=== PATIENT | female | born 1960 | race Caucasian/White ===

== ENCOUNTER 2018-04-28 19:05 | Emergency (ER) | payer OTHER ==
[2018-04-28 19:19] VITALS: BP 187/116; PULSE 102; RESP 18; TEMP 98; O2SAT 99
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
[2018-04-28] MEDS ORDERED: ROBA750T PO (22:41)
[2018-04-28] MEDS ORDERED: MOBI15TA PO (22:41)
== END 2018-04-28 23:04 | disposition home or self-care (01) ==
LOC: NEPD 19:05
DX: S16.1XXA Strain of muscle, fascia and tendon at neck level, initial encounter (principal); S39.012A Strain of muscle, fascia and tendon of lower back, initial encounter; S29.019A Strain of muscle and tendon of unspecified wall of thorax, initial encounter; R20.0 Anesthesia of skin; M50.30 Other cervical disc degeneration, unspecified cervical region; M51.34 Other intervertebral disc degeneration, thoracic region; M41.9 Scoliosis, unspecified; V49.50XA Passenger injured in collision with unspecified motor vehicles in traffic accident, initial encounter
CPT/HCPCS: 72040; 72072; 72100; 72141; 72148

== ENCOUNTER 2018-11-21 07:55 | Inpatient (IN) ==
--- NOTE | 2018-11-21 08:53 | ED ---
HPI General Chief Complaint: Psychiatric Symptoms Stated Complaint: psych eval Time Seen by Provider: 11/21/18 08:33 History of Present Illness HPI Narrative: The patient was seen and examined in the presence of the nurse. This patient complains of feeling anxiety and depression. She has been battling this for 6 months. Her doctor started her on Zoloft 5 days ago. She does not feel any better. She is not feeling suicidal. She presents for psychiatric evaluation. She denies hallucination. She denies medical complaint. Denies alcohol or drug issues. Severity is moderate. No alleviating factors. No exacerbating factors. Related Data Home Medications Medication Instructions Recorded Confirmed sertraline [Zoloft] 50 mg PO DAILY 11/21/18 11/21/18 Allergies Allergy/AdvReac Type Severity Reaction Status Date / Time No Known Allergies Allergy Verified 11/21/18 09:27 Review of Systems ROS: all other systems reviewed are negative [facility] Medical History Medical History Anxiety (Acute) Depression (Acute) FH: cholecystectomy (Acute) Vaginal hemorrhage (Acute) Social History Social History Substance History: No History of Abuse Second Hand Smoke Exposure: No Smoking Status: Former smoker How Often Do You Have a Drink Containing Alcohol: Never Recent Travel in [facility] within the Last 8 Weeks: No Recent Out of Country Travel within the Last 8 Weeks: No Immunization History Tetanus Immunization: Unsure Exam Narrative Exam Narrative: GENERAL: Well-nourished, well-developed patient in no apparent distress. SKIN: Focused skin assessment reveals no rash and nodules. Skin is Warm and dry. HEAD: Atraumatic. Normocephalic. EYES: Pupils equal and round. No scleral icterus. No injection or drainage. ENT: No nasal bleeding or discharge. Mucous membranes pink and moist. NECK: Trachea midline. No JVD. CARDIOVASCULAR: Regular rate and rhythm. No murmur appreciated. RESPIRATORY: No accessory muscle use. Clear to auscultation. Breath sounds equal bilaterally. GASTROINTESTINAL: Abdomen soft, non-tender, nondistended. Hepatic and splenic margins not palpable. MUSCULOSKELETAL: No obvious deformities. No clubbing. No cyanosis. No edema. NEUROLOGICAL: Awake and alert. No obvious cranial nerve deficits. Motor grossly within normal limits. Normal speech. PSYCHIATRIC: Depressed and anxious mood and affect; insight and judgment normal. Course Initial Documented Vital Signs Temperature 97.4 F L 11/21/18 08:07 Pulse Rate 98 H 11/21/18 08:07 Respiratory Rate 16 11/21/18 08:07 Blood Pressure 157/95 H 11/21/18 08:07 Pulse Oximetry 97 11/21/18 08:07 Last Documented Vital Signs Temperature 97.4 F L 11/21/18 08:07 Pulse Rate 98 H 11/21/18 08:07 Respiratory Rate 16 11/21/18 08:07 Blood Pressure 157/95 H 11/21/18 08:07 Pulse Oximetry 97 11/21/18 08:07 Medical Decision Making MDM Narrative Medical decision making narrative: 58-year-old female with depression and anxiety issues. She request psychiatric evaluation. I have ordered psychiatric screening. I ordered medical clearance workup to include lab studies and toxicology screen. Patient's medical workup is normal. She is medically stable.. I believe they are going to admit her to psychiatry for psychiatric stabilization. Medical Screen Exam Complete: Yes Emergency Medical Condition: Yes Differential Diagnosis Differential Diagnosis: Anxiety, depression, adjustment disorder Medical Records Medical records reviewed: Yes I reviewed the patient's medical records. Lab Data Lab results reviewed: Yes I reviewed the patient's lab results. Lab results narrative: Labs are normal Result diagrams: 11/21/18 09:05 11/21/18 09:05 Lab Results 11/21/18 11/21/18 11/21/18 Range/Units 09:05 09:05 09:15 WBC 5.7 (4.0-11.0) th/mm3 RBC 5.01 (4.00-5.30) mil/mm3 Hgb 15.7 H (11.6-15.3) gm/dL Hct 46.1 H (35.0-46.0) % MCV 91.9 (80.0-100.0) fL MCH 31.3 (27.0-34.0) pg MCHC 34.1 (32.0-36.0) % RDW 14.5 (11.6-17.2) % Plt Count 190 (150-450) th/mm3 MPV 10.6 (7.0-11.0) fL Neut % (Auto) 64.8 (16.0-70.0) % Lymph % (Auto) 26.7 (9.0-44.0) % [place] % (Auto) 7.4 (0.0-8.0) % Eos % (Auto) 0.7 (0.0-4.0) % Baso % (Auto) 0.4 (0.0-2.0) % Neut # (Auto) 3.7 (1.8-7.7) th/mm3 Lymph # (Auto) 1.5 (1.0-4.8) th/mm3 [place] # (Auto) 0.4 (0.0-0.9) th/mm3 Eos # (Auto) 0.0 (0.0-0.4) th/mm3 Baso # (Auto) 0.0 (0.0-0.2) th/mm3 WBC Differential . Differential Comment Auto diff final Sodium 140 (136-145) meq/L Potassium 3.8 (3.5-5.1) meq/L Chloride 107 (98-107) meq/L Carbon Dioxide 26.0 (21.0-32.0) meq/L Anion Gap 7 (5-15) meq/L BUN 7 (7-18) mg/dL Creatinine 0.63 (0.50-1.00) mg/dL Estimated GFR Greater than 89 (>89) mL/min Random Glucose 93 (74-106) mg/dL Calcium 9.2 (8.5-10.1) mg/dL Total Bilirubin 0.6 (0.2-1.0) mg/dL AST 30 (15-37) U/L ALT 35 (10-53) U/L Alkaline Phosphatase 131 H (45-117) U/L Total Protein 7.6 (6.4-8.2) g/dL Albumin 3.9 (3.4-5.0) g/dL TSH 1.990 (0.358-3.740) uIU/mL Urine Opiates Screen Neg (Neg) Ur Barbiturates Screen Neg (Neg) Ur Amphetamines Screen Neg (Neg) U Benzodiazepines Scrn Neg (Neg) Urine Cocaine Screen Neg (Neg) U Cannabinoids Screen Neg (Neg) Serum Alcohol 4 (0-5) mg/dL Discharge Plan Discharge Disposition Patient Disposition: ED Admit(ED Internal Use Only) Discharge Details Diagnosis: Acute anxiety, Acute psychosis, Depression Physicians Team ED Provider: Kwame Marlow Primary Care Provider: Nova Chavez Rxs /Orders / Referrals /Forms Prescriptions: No Action sertraline [Zoloft] 50 mg Tablet 50 mg PO DAILY RF: 0 Status ED Status: Medically Cleared
[2018-11-21 10:20] LABS: Baso % (Auto) 0.4 % (0.0-2.0); Eos % (Auto) 0.7 % (0.0-4.0); Hematocrit 46.1 % (35.0-46.0); Hemoglobin 15.7 gm/dL (11.6-15.3); Lymph # (Auto) 1.5 th/mm3 (1.0-4.8); Lymph % (Auto) 26.7 % (9.0-44.0); Mean Corpuscular HGB Conc 34.1 % (32.0-36.0); Mean Corpuscular Hemoglobin 31.3 pg (27.0-34.0); Mean Corpuscular Volume 91.9 fL (80.0-100.0); Mean Platelet Volume 10.6 fL (7.0-11.0); Mono # (Auto) 0.4 th/mm3 (0.0-0.9); Mono % (Auto) 7.4 % (0.0-8.0); Neut # (Auto) 3.7 th/mm3 (1.8-7.7); Neut % (Auto) 64.8 % (16.0-70.0); Platelet Count 190 th/mm3 (150-450); Red Blood Count 5.01 mil/mm3 (4.00-5.30); Red Cell Distribution Width 14.5 % (11.6-17.2); White Blood Count 5.7 th/mm3 (4.0-11.0)
[2018-11-21 10:29] LABS: Amphetamine Screen,Urine Neg (Neg); Barbiturate Screen,Urine Neg (Neg); Cannabinoid Screen,Urine Neg (Neg); Cocaine Screen,Urine Neg (Neg)
[2018-11-21 10:36] LABS: Opiate Screen,Urine Neg (Neg)
[2018-11-21 10:43] LABS: Alkaline Phosphatase 131 U/L (45-117); Total Protein 7.6 g/dL (6.4-8.2)
[2018-11-21 10:46] LABS: Alanine Aminotransferase 35 U/L (10-53); Albumin 3.9 g/dL (3.4-5.0); Alcohol 4 mg/dL (0-5); Anion Gap 7 meq/L (5-15); Aspartate Aminotransferase 30 U/L (15-37); Blood Urea Nitrogen 7 mg/dL (7-18); Calcium 9.2 mg/dL (8.5-10.1); Chloride 107 meq/L (98-107); Glomerular Filtration Rate Greater Than 89 mL/min (>89); Glucose,Random 93 mg/dL (74-106); Potassium 3.8 meq/L (3.5-5.1); Sodium 140 meq/L (136-145)
[2018-11-21] MEDS ORDERED: Acetaminophen 325 MG Tablet PO PRN (12:42)
[2018-11-21] MEDS ORDERED: Aluminum/Magnesium/Simethacone Susp 30 ML UDC PO PRN (12:42)
--- NOTE | 2018-11-21 15:29 | ED ---
HPI - Psych - General Time Seen by Psych Provider: 11:51 Source: patient, family Mode of arrival: ambulatory Limitations: no limitations - History of Present Illness complaint: other (Anxiety) Onset (ago): month(s) (Approximately 5 months) Duration: constant, changing over time, getting worse History of same: Yes Relieving factors: none Exacerbating factors: none - General Chief Complaint: Psychiatric Symptoms Stated Complaint: psych eval Time Seen by Provider: 11/21/18 08:33 - History of Present Illness HPI Narrative: This is a 58-year-old , female who presents voluntarily to this facility for self-reported anxiety and depression. While the patient is known to this facility she is not previously known to the psychiatric department. Reviewed electronic medical record, labs, and discussed case with staff. Patient was evaluated in C 28 with her present. Patient is noted to be sitting on the bed with a pair of the hospitals latex gloves on her hands. She states this is due to all the germs in the room. She is found to be awake, alert, and oriented x4. Her speech is clear, logical, organized, of normal rubina and volume. She denies suicidal ideation but does state that she feels like she "cannot go on like this". She denies being homicidal or experiencing auditory or visual hallucinations. There is no indication of schizophrenia or manolo. Does not appear to be any delusional material however, she does relate feeling overly anxious about germs and safety issues. She states this is impacted her the point that she can eat at a restaurant because she is afraid her food might make her sick. She denies that she feels anybody is out to get her or intentionally wants to harm her. Instead, she expresses concerns such as the Cook may have smoked crack cocaine and have some residue on his hands which could get on her food and then she would ingest it and it would adversely affect her. She states it is reached the point that she has difficulty eating food which she has not prepared. The patient's mood is anxious and her affect is labile as evidenced by her frequent bouts of crying. Otherwise, she is appropriate throughout the interview and engages freely. "I have been having anxiety and staff for about 5 months now." She also reports that she has anxiety about taking medications. Her primary care provider recently started her on 50 mg of sertraline once a day however she has been taking half tablets due to her anxiety about medications. She reports that she feels her anxiety is due more to the constant elevated anxiety level. She denies any previous suicide attempts. She denies previous psychiatric treatment. She reports that she has 2 sisters one who is treated for depression and the other who is treated for anxiety. She lives with her and 19-year-old daughter. Reports that she is a high school graduate who has some college. She denies any previous self-harm or incarcerations. Her reports that they do own firearms however they are locked in a safe. (Viviana Alonso) - Related Data Home Medications Medication Instructions Recorded Confirmed sertraline [Zoloft] 50 mg PO DAILY 11/21/18 11/21/18 Allergies Allergy/AdvReac Type Severity Reaction Status Date / Time No Known Allergies Allergy Verified 11/21/18 09:27 Review of Systems All other systems reviewed negative except as stated in HPI [facility] - History History Provided By: Patient, Family Member - Medical History Medical History: Medical History (Last Reviewed 11/21/18 @ 15:22 by KILEY Husain) Anxiety Depression FH: cholecystectomy Vaginal hemorrhage - Tobacco History Second Hand Smoke Exposure: No Tobacco Use In Past 30 Days: No Smoking Status: Former smoker - Alcohol History How Often Do You Have a Drink Containing Alcohol: Never - Substance Use History Substance History: No History of Abuse - Travel History Recent Travel in the [place] Within the Last 8 Weeks: No Recent Travel Out of the Country Within the Last 8 Weeks: No - Immunization History Tetanus Immunization: Unsure Psychiatric History - Psychiatric History Psychiatric Treatment History: Denies Previous Treatment History of Inpatient Treatment: No Firearms in Home: Yes - Psychiatric History Primary care provider prescribed sertraline 50 mg once daily patient's been taking half tablets. Denies any previous treatments. (Viviana Alonso) - Legal History Denies (Viviana Alonso) - Family Psychiatric History One sister has diagnoses of depression and the other has a diagnoses of anxiety. (Viviana Alonso) Physical Exam - General Limitations: no limitations General appearance: anxious - Head Head exam: atraumatic, normocephalic - Neurological Exam Neurological exam: Present: alert, oriented X3 - Psychiatric Psychiatric exam: Present: anxious - Skin Skin exam: Present: warm, dry Mental Status Examination Appearance: Appropriate, Well dressed/well groomed Consciousness: Alert Orientation: x4 Motor Activity: Normal gait Speech: Unremarkable Language: Adequate Fund of Knowledge: Adequate Attention and Concentration: Adequate Memory: Unremarkable Mood: Anxious Affect: Anxious Thought Process & Associations: Intact, Logical Thought Content: Preoccupations (With germs and safety) Hallucination Type: None Delusion Type: None Suicidal Ideation: No Suicidal Plan: No Suicidal Intention: No Homicidal Ideation: No Homicidal Plan: No Homicidal Intention: No Insight: Fair Judgment: Impulsive Initial Documented Vital Signs Temperature 97.4 F L 11/21/18 08:07 Pulse Rate 98 H 11/21/18 08:07 Respiratory Rate 16 11/21/18 08:07 Blood Pressure 157/95 H 11/21/18 08:07 Pulse Oximetry 97 11/21/18 08:07 Last Documented Vital Signs Temperature 98.5 F 11/21/18 14:35 Pulse Rate 87 11/21/18 14:35 Respiratory Rate 16 11/21/18 14:35 Blood Pressure 138/81 11/21/18 14:35 Pulse Oximetry 98 11/21/18 14:35 [facility] - Psych - Diagnosis (1) Acute anxiety Code(s): F41.9 - Anxiety disorder, unspecified Status: Acute - Differential Diagnosis Likely: depression - Lab Data Result diagrams: 11/21/18 09:05 11/21/18 09:05 - [facility] Narrative Medical decision making narrative: Given that the patient's life is being affected by her extreme anxiety and she is requesting stabilization I have admitted her to a locked psychiatric inpatient unit for further evaluation and treatment as deemed necessary. The patient has signed all voluntary paperwork as well as consents for sertraline 50 mg by mouth once daily to target her anxiety and depressive symptoms, hydroxyzine 50 mg by mouth every 6 hours as needed for anxiety, and diphenhydramine 50 mg by mouth at bedtime as needed for insomnia. (Viviana lAonso) - Lab Data Lab Results 11/21/18 11/21/18 11/21/18 Range/Units 09:05 09:05 09:15 WBC 5.7 (4.0-11.0) th/mm3 RBC 5.01 (4.00-5.30) mil/mm3 Hgb 15.7 H (11.6-15.3) gm/dL Hct 46.1 H (35.0-46.0) % MCV 91.9 (80.0-100.0) fL MCH 31.3 (27.0-34.0) pg MCHC 34.1 (32.0-36.0) % RDW 14.5 (11.6-17.2) % Plt Count 190 (150-450) th/mm3 MPV 10.6 (7.0-11.0) fL Neut % (Auto) 64.8 (16.0-70.0) % Lymph % (Auto) 26.7 (9.0-44.0) % [place] % (Auto) 7.4 (0.0-8.0) % Eos % (Auto) 0.7 (0.0-4.0) % Baso % (Auto) 0.4 (0.0-2.0) % Neut # (Auto) 3.7 (1.8-7.7) th/mm3 Lymph # (Auto) 1.5 (1.0-4.8) th/mm3 [place] # (Auto) 0.4 (0.0-0.9) th/mm3 Eos # (Auto) 0.0 (0.0-0.4) th/mm3 Baso # (Auto) 0.0 (0.0-0.2) th/mm3 WBC Differential . Differential Comment Auto diff final Sodium 140 (136-145) meq/L Potassium 3.8 (3.5-5.1) meq/L Chloride 107 (98-107) meq/L Carbon Dioxide 26.0 (21.0-32.0) meq/L Anion Gap 7 (5-15) meq/L BUN 7 (7-18) mg/dL Creatinine 0.63 (0.50-1.00) mg/dL Estimated GFR Greater than 89 (>89) mL/min Random Glucose 93 (74-106) mg/dL Calcium 9.2 (8.5-10.1) mg/dL Total Bilirubin 0.6 (0.2-1.0) mg/dL AST 30 (15-37) U/L ALT 35 (10-53) U/L Alkaline Phosphatase 131 H (45-117) U/L Total Protein 7.6 (6.4-8.2) g/dL Albumin 3.9 (3.4-5.0) g/dL TSH 1.990 (0.358-3.740) uIU/mL Urine Opiates Screen Neg (Neg) Ur Barbiturates Screen Neg (Neg) Ur Amphetamines Screen Neg (Neg) U Benzodiazepines Scrn Neg (Neg) Urine Cocaine Screen Neg (Neg) U Cannabinoids Screen Neg (Neg) Serum Alcohol 4 (0-5) mg/dL
[2018-11-22 05:40] VITALS: BP 121/70; PULSE 97; RESP 17; TEMP 98.3; O2SAT 96
[2018-11-22 07:11] LABS: Anion Gap 7 meq/L (5-15); Blood Urea Nitrogen 8 mg/dL (7-18); Calcium 8.8 mg/dL (8.5-10.1); Carbon Dioxide 29.7 meq/L (21.0-32.0); Chloride 108 meq/L (98-107); Glomerular Filtration Rate Greater Than 89 mL/min (>89); Glucose,Random 77 mg/dL (74-106); Sodium 145 meq/L (136-145)
[2018-11-22 07:12] LABS: Cholesterol 171 mg/dL (120-200); Triglycerides 49 mg/dL (42-150)
[2018-11-22 07:14] LABS: HDL Cholesterol 53.3 mg/dL (40.0-60.0); LDL Cholesterol,Calculated 108 mg/dL (0-99)
--- NOTE | 2018-11-22 08:49 | P.HPPSY ---
Provisional Diagnosis Admission Date: November 21, 2018 12:50 [place].: Generalized anxiety disorder Competence Certification of Person's Competence To Provide Express and Informed Consent I have personally examined Abida Benítez, a person being served at [facility] on, November 22, 2018 0837. Express and informed consent means consent voluntarily given in writing, by a competent person, after sufficient explanation and disclosure of the subject matter involved to enable the person to make a knowing and willful decision without any element of force, fraud, deceit, duress, or other form of constraint or coercion. This person is 18 years of age or older, is not now known to be incompetent to consent to treatment with a guardian advocate, and does not have a health care surrogate or proxy currently making medical treatment decisions. I have found this person to be one of the following: [] Competent to provide express and informed consent, as defined above, for voluntary admission to this facility and is competent to provide express and informed consent for treatment. He/she has the consistent capacity to make well reasoned, willful, and knowing decisions concerning his or her medical or mental health treatment. The person fully and consistently understands the purpose of the admission for examination/placement and is fully capable of personally exercising all rights assured [place] [] Incompetent to provide express and informed consent to voluntary admission, and this is incompetent to provide express and informed consent to treatment. The person must be transferred to involuntary status and a petition for a guardian advocate filed with the Circuit Court. [] Refusing to provide express and informed consent to voluntary admission but is competent to provide express and informed consent for treatment. The person must be discharged or transferred to involuntary status. Form shall be completed within 24 hours of a person's arrival at the receiving facility and filed in the clinical record of each person: 1. Admitted on a voluntary basis 2. Permitted to provide express and informed consent to his/her own treatment 3. Allowed to transfer from involuntary to voluntary status 4. Prior to permitting a person to consent to his or her own treatment after having been previously found incompetent to consent to treatment. History of Present Illness Capacity: Has capacity Chief Complaint: Anxiety History of Present Illness: November 22, 2018 HPI: Patient is a 58-year-old female admitted for anxiety without complaints of depression or of intent to harm herself. The anxiety has been present on and off for most of her life but is become more acute recently when she had some medical problems with inability to clear her eustachian tube. Patient saw a series of doctors finally an ENT specialist who is able to help her. The anxiety is generalized and noted in relationship to worry about food poisoning and worry about germs. Patient tends to minimize the symptoms, but has been seeing a therapist over the past month for about 4 visits. Her primary care physician started her on Zoloft 25 mg for a week and increase it to 50. According to the electronic record and notes made in the ED the patient has been afraid to up the dosage to 50. Patient claims that the 50 mg Atarax given her here has given her some relief from anxiety with an a few minutes, where she had expected improvement on the Zoloft almost as quickly. She is not aware of the period of time it would take Zoloft to begin giving her any relief. Additional symptoms include 30 pound weight loss which she attributes to her being afraid to eat. Patient claims that he has had anxieties different times but is not sought attention of mental health conditioner until the recent episodes. She claims that there were some early trauma center life including the loss of siblings. Family history: Patient has 2 sisters one has a problem with anxiety the other problem with depression. Past medical history: Patient had eustachian tube problems from June until recently. She now claims that this problem resolved. Patient denies any significant medical problems at this time other than possibly the 30 pound weight loss. - Inpatient Certification I certify that the inpatient services were ordered in accordance with Medicare regulations governing the order. This includes certification that hospital inpatient services are reasonable and necessary and in the case of services not specified as inpatient-only under 42 CFR 419.22(n), that they are appropriately provided as inpatient services in accordance to with the 2-midnight benchmark under 43 CFR 412.3(e) I certify that inpatient psychiatric hospital services are medically necessary. Evaluation and treatment and/or diagnostic testing are expected to improve the patient's condition. The patient needs on a daily basis, active treatment furnished directly by or requiring the supervision of inpatient psychiatric facility personnel. Estimated Total Length of Stay (Days): 5 Plans for Post Hospital Care: Home Review of Systems Psychiatric problems with anxiety about food leading to 30 pound weight loss. ENT: Patient recently had 3-4 months of problems with her eustachian tubes not clearing. [facility] - History History Provided By: Patient - Medical History Medical History: Medical History (Last Reviewed 11/21/18 @ 15:22 by KILEY Husain) Anxiety Depression FH: cholecystectomy Vaginal hemorrhage - Family History Family History: Family History (Last Reviewed 11/21/18 @ 17:02 by Michelle Monique RN) Sister Depression Anxiety disorder - Tobacco History Second Hand Smoke Exposure: Yes ("Daugher vapes") Tobacco Use In Past 30 Days: No Smoking Status: Former smoker Tobacco Type: Cigarettes - Alcohol History How Often Do You Have a Drink Containing Alcohol: Never - Substance Use History Substance History: No History of Abuse - Travel History Recent Travel in the [place] Within the Last 8 Weeks: No Recent Travel Out of the Country Within the Last 8 Weeks: No - Immunization History Tetanus Immunization: Unsure Hx Influenza Vaccine This Season: No Medications and Allergies Active Medications: Active Medications Acetaminophen (Tylenol) 650 mg PO Q4H PRN PRN Reason: Pain 1-5 or Temp >101F Al Hydrox/Mg Hydrox/Simethicone (Mag-Al Plus Susp Liq) 30 ml PO Q6H PRN PRN Reason: DYSPEPSIA Al Hydroxide/Mg Hydroxide (Milk Of Magnesia Liq) 30 ml PO Q12H PRN PRN Reason: Mild Constipation Diphenhydramine HCl (Benadryl) 50 mg PO HS PRN PRN Reason: INSOMNIA Hydroxyzine HCl (Atarax) 50 mg PO Q6H PRN PRN Reason: ANXIETY Last Admin: 11/22/18 08:26 Dose: 50 mg Sertraline HCl (Zoloft) 50 mg PO DAILY GOLDY Last Admin: 11/22/18 08:26 Dose: 50 mg Allergies Allergy/AdvReac Type Severity Reaction Status Date / Time No Known Allergies Allergy Verified 11/21/18 09:27 Results - Labs CBC & Chem 7: 11/21/18 09:05 11/22/18 05:50 Labs: Laboratory Results - last 24 hr 11/21/18 11/21/18 11/21/18 09:05 09:05 09:15 WBC 5.7 RBC 5.01 Hgb 15.7 H Hct 46.1 H MCV 91.9 MCH 31.3 MCHC 34.1 RDW 14.5 Plt Count 190 MPV 10.6 Neut % (Auto) 64.8 Lymph % (Auto) 26.7 [place] % (Auto) 7.4 Eos % (Auto) 0.7 Baso % (Auto) 0.4 Neut # (Auto) 3.7 Lymph # (Auto) 1.5 [place] # (Auto) 0.4 Eos # (Auto) 0.0 Baso # (Auto) 0.0 WBC Differential . Differential Comment Auto diff final Sodium 140 Potassium 3.8 Chloride 107 Carbon Dioxide 26.0 Anion Gap 7 BUN 7 Creatinine 0.63 Estimated GFR Greater than 89 Random Glucose 93 Calcium 9.2 Total Bilirubin 0.6 AST 30 ALT 35 Alkaline Phosphatase 131 H Total Protein 7.6 Albumin 3.9 Triglycerides Cholesterol LDL Cholesterol, Calc HDL Cholesterol Cholesterol/HDL Ratio TSH 1.990 Urine Opiates Screen Neg Ur Barbiturates Screen Neg Ur Amphetamines Screen Neg U Benzodiazepines Scrn Neg Urine Cocaine Screen Neg U Cannabinoids Screen Neg Serum Alcohol 4 11/22/18 05:50 WBC RBC Hgb Hct MCV MCH MCHC RDW Plt Count MPV Neut % (Auto) Lymph % (Auto) [place] % (Auto) Eos % (Auto) Baso % (Auto) Neut # (Auto) Lymph # (Auto) [place] # (Auto) Eos # (Auto) Baso # (Auto) WBC Differential Differential Comment Sodium 145 Potassium 4.0 Chloride 108 H Carbon Dioxide 29.7 Anion Gap 7 BUN 8 Creatinine 0.66 Estimated GFR Greater than 89 Random Glucose 77 Calcium 8.8 Total Bilirubin AST ALT Alkaline Phosphatase Total Protein Albumin Triglycerides 49 Cholesterol 171 LDL Cholesterol, Calc 108 H HDL Cholesterol 53.3 Cholesterol/HDL Ratio 3.20 TSH Urine Opiates Screen Ur Barbiturates Screen Ur Amphetamines Screen U Benzodiazepines Scrn Urine Cocaine Screen U Cannabinoids Screen Serum Alcohol Exam Vital signs: Vital Signs 11/21/18 13:40 11/21/18 14:35 11/22/18 05:38 Temperature 98.5 F 98.3 F Pulse Rate 97 H 87 97 H Respiratory Rate 15 16 17 Blood Pressure 137/78 138/81 121/70 Pulse Oximetry 100 98 96 Intake & Output 11/21/18 11/22/18 11/22/18 18:59 06:59 18:59 Weight 69.7 kg Other: Weight On Admission 69.7 kg Mental Status Examination Appearance: Appropriate, Well dressed/well groomed Consciousness: Alert Orientation: x4 Motor Activity: Normal gait Speech: Unremarkable Language: Adequate Fund of Knowledge: Adequate Attention and Concentration: Adequate Memory: Unremarkable Mood: Anxious Affect: Anxious Thought Process & Associations: Intact, Logical Thought Content: Preoccupations (With germs and safety) Hallucination Type: None Delusion Type: None Suicidal Ideation: No Suicidal Plan: No Suicidal Intention: No Homicidal Ideation: No Homicidal Plan: No Homicidal Intention: No Insight: Fair Judgment: Impulsive Assessment and Plan - Plan Plan: Estimated LOS: [] days Patient will be discharged with prescriptions for Atarax 50 mg every 6 as needed and Zoloft 50 mg a day. Patient is referred back to her primary care physician for follow-up care Justification for Continued Inpatient Stay: Continued inpatient care is not warranted.
--- NOTE | 2018-11-22 08:53 | P.DSPSY ---
Psychiatry Discharge Summary Inpatient Psychiatric care?: Yes Advance Directives: No Mental Health Advance Directive: No Health Care Proxy: No - Admission Admission Date: November 21, 2018 12:50 Brief History: November 22, 2018 HPI: Patient is a 58-year-old female admitted for anxiety without complaints of depression or of intent to harm herself. The anxiety has been present on and off for most of her life but is become more acute recently when she had some medical problems with inability to clear her eustachian tube. Patient saw a series of doctors finally an ENT specialist who is able to help her. The anxiety is generalized and noted in relationship to worry about food poisoning and worry about germs. Patient tends to minimize the symptoms, but has been seeing a therapist over the past month for about 4 visits. Her primary care physician started her on Zoloft 25 mg for a week and increase it to 50. According to the electronic record and notes made in the ED the patient has been afraid to up the dosage to 50. Patient claims that the 50 mg Atarax given her here has given her some relief from anxiety with an a few minutes, where she had expected improvement on the Zoloft almost as quickly. She is not aware of the period of time it would take Zoloft to begin giving her any relief. Additional symptoms include 30 pound weight loss which she attributes to her being afraid to eat. Patient claims that he has had anxieties different times but is not sought attention of mental health conditioner until the recent episodes. She claims that there were some early trauma center life including the loss of siblings. Family history: Patient has 2 sisters one has a problem with anxiety the other problem with depression. Past medical history: Patient had eustachian tube problems from June until recently. She now claims that this problem resolved. Patient denies any significant medical problems at this time other than possibly the 30 pound weight loss. Tobacco Use In Past 30 Days: No How Often Do You Have a Drink Containing Alcohol: Never Hospital Course: November 22, 2018 Course in hospital: Patient had interview and discussions regarding follow-up care. It was determined that the patient's anxiety disorder was clearly a problem that appeared to be getting worse and that in patient care evaluation was warranted however patient feels comfortable returning to her primary care physician with prescriptions for 50 mg of Atarax every 6 hours as needed along with her agreement to increase her's Zoloft to 50 mg as directed by her primary care but that she had been avoiding, taking only half a tablet daily. - Discharge Discharge Date: 11/22/18 Discharge Disposition: Home - Discharge Time > 30 minutes Mental Status Examination Appearance: Appropriate, Well dressed/well groomed Consciousness: Alert Orientation: x4 Motor Activity: Normal gait Speech: Unremarkable Language: Adequate Fund of Knowledge: Adequate Attention and Concentration: Adequate Memory: Unremarkable Mood: Anxious Affect: Anxious Thought Process & Associations: Intact, Logical Thought Content: Preoccupations (With germs and safety) Hallucination Type: None Delusion Type: None Suicidal Ideation: No Suicidal Plan: No Suicidal Intention: No Homicidal Ideation: No Homicidal Plan: No Homicidal Intention: No Insight: Fair Judgment: Impulsive Discharge/Advance Care Plan Your Health Problems Are: Anxiety - Results Vital Signs: Last Vital Signs Temp 98.3 F 11/22/18 05:38 Pulse 97 H 11/22/18 05:38 Resp 17 11/22/18 05:38 BP 121/70 11/22/18 05:38 Pulse Ox 96 11/22/18 05:38 Lab Results: Abnormal Lab Results 11/21/18 11/21/18 11/21/18 09:05 09:05 09:15 WBC 5.7 RBC 5.01 Hgb 15.7 H Hct 46.1 H MCV 91.9 MCH 31.3 MCHC 34.1 RDW 14.5 Plt Count 190 MPV 10.6 Neut % (Auto) 64.8 Lymph % (Auto) 26.7 [place] % (Auto) 7.4 Eos % (Auto) 0.7 Baso % (Auto) 0.4 Neut # (Auto) 3.7 Lymph # (Auto) 1.5 [place] # (Auto) 0.4 Eos # (Auto) 0.0 Baso # (Auto) 0.0 WBC Differential . Differential Comment Auto diff final Sodium 140 Potassium 3.8 Chloride 107 Carbon Dioxide 26.0 Anion Gap 7 BUN 7 Creatinine 0.63 Estimated GFR Greater than 89 Random Glucose 93 Calcium 9.2 Total Bilirubin 0.6 AST 30 ALT 35 Alkaline Phosphatase 131 H Total Protein 7.6 Albumin 3.9 Triglycerides Cholesterol LDL Cholesterol, Calc HDL Cholesterol Cholesterol/HDL Ratio TSH 1.990 Urine Opiates Screen Neg Ur Barbiturates Screen Neg Ur Amphetamines Screen Neg U Benzodiazepines Scrn Neg Urine Cocaine Screen Neg U Cannabinoids Screen Neg Serum Alcohol 4 11/22/18 05:50 WBC RBC Hgb Hct MCV MCH MCHC RDW Plt Count MPV Neut % (Auto) Lymph % (Auto) [place] % (Auto) Eos % (Auto) Baso % (Auto) Neut # (Auto) Lymph # (Auto) [place] # (Auto) Eos # (Auto) Baso # (Auto) WBC Differential Differential Comment Sodium 145 Potassium 4.0 Chloride 108 H Carbon Dioxide 29.7 Anion Gap 7 BUN 8 Creatinine 0.66 Estimated GFR Greater than 89 Random Glucose 77 Calcium 8.8 Total Bilirubin AST ALT Alkaline Phosphatase Total Protein Albumin Triglycerides 49 Cholesterol 171 LDL Cholesterol, Calc 108 H HDL Cholesterol 53.3 Cholesterol/HDL Ratio 3.20 TSH Urine Opiates Screen Ur Barbiturates Screen Ur Amphetamines Screen U Benzodiazepines Scrn Urine Cocaine Screen U Cannabinoids Screen Serum Alcohol Laboratory Results Triglycerides 49 mg/dL (42-150) 11/22/18 05:50 Cholesterol 171 mg/dL (120-200) 11/22/18 05:50 LDL Cholesterol, Calc 108 mg/dL (0-99) H 11/22/18 05:50 HDL Cholesterol 53.3 mg/dL (40.0-60.0) 11/22/18 05:50 TSH 1.990 uIU/mL (0.358-3.740) 11/21/18 09:05 Summary of Procedures: None Pending Results: None - Medications Number of antipsychotic medications at discharge: 0 - Discharge Care Plan Goals to Promote Your Health: * To prevent worsening of your condition and complications * To maintain your health at the optimal level Directions to Meet Your Goals: Take your medications as prescribed Follow your dietary instruction Follow activity as directed Keep your appointments as scheduled Take your immunizations and boosters as scheduled If your symptoms worsen call your PCP, if no PCP go to Urgent Care Center or Emergency Room For 05/06 questions related to your inpatient stay or results of tests pending at discharge, please contact Dr. Jacob Jett MD at Smoking is Dangerous to Your Health. Avoid second hand smoking
[2018-11-22] MEDS ORDERED: Sertraline 50 MG Tablet PO SCH (09:00)
[2018-11-22 17:15] LABS: Hemoglobin A1c 5.4 % (4.3-6.0)
== END 2018-11-22 11:10 | disposition home or self-care (01) | DRG 880 ==
LOC: NEPC 07:55 → NEDA 12:50 → H260 13:13
PROVIDERS: ADMIT Psychiatry & Neurology Child & Adolescent Psychiatry; ATTEND Psychiatry & Neurology Child & Adolescent Psychiatry